=== PATIENT | female | born 1980 | race American Indian/Alaskan Native ===

== ENCOUNTER 2016-11-08 04:25 | Emergency (ER) | payer SELFPAY ==
[2016-11-08 05:54] LABS: Urine Drugs of Abuse Note Disclamer
[2016-11-08 05:55] LABS: Alanine Aminotransferase 10 units/L (7-56); Alkaline Phosphatase 68 units/L (35-129); Anion Gap 17 mmol/L; BUN/Creatinine Ratio 8.88; Blood Urea Nitrogen 8 mg/dL (7-17); Calcium 9.1 mg/dL (8.4-10.2); Carbon Dioxide 25 mmol/L (22-30); Chloride 101.5 mmol/L (98-107); Glucose 105 mg/dL (65-100); Lipase 34 units/L (13-60); Sodium 140 mmol/L (137-145); Total Protein 8.2 g/dL (6.3-8.2)
[2016-11-08 06:00] LABS: Creatine Kinase 189 units/L (30-135); Creatine Kinase MB 1.6 ng/mL (0.0-4.0)
[2016-11-08 06:06] LABS: Basophils % (Auto) 0.9 % (0.0-1.8); Eosinophils % (Auto) 0.1 % (0.0-4.3); Hematocrit 37.6 % (30.3-42.9); Hemoglobin 12.9 gm/dl (10.1-14.3); Mean Corpuscular HGB Conc 34 % (30-34); Mean Corpuscular Hemoglobin 34 pg (28-32); Mean Corpuscular Volume 98 fl (79-97); Mean Platelet Volume 8.8 fl (6-12); Platelet Count 268 K/mm3 (140-440); Red Blood Count 3.84 M/mm3 (3.65-5.03); Red Cell Distribution Width 13.9 % (13.2-15.2); White Blood Count 4.6 K/mm3 (4.5-11.0)
[2016-11-08 06:07] LABS: Partial Thromboplastin Time 30.4 Sec. (24.2-36.6)
[2016-11-08 06:08] LABS: INR 1.05 (0.87-1.13)
[2016-11-08 07:14] LABS: Bilirubin,Urine NEG (Negative); Blood,Urine MOD (Negative); Ketones,Urine NEG (Negative); Leukocyte Esterase,Urine TR (Negative); Mucus,Urine FEW /HPF; Nitrite,Urine NEG (Negative); Protein,Urine <15 mg/dL mg/dL (Negative); Urobilinogen,Urine < 2.0 mg/dL (<2.0)
[2016-11-08] MEDS ORDERED: K-DUR PO ONE (08:38)
--- NOTE | 2016-11-08 09:25 | Emergency Department Report ---
HPI - General Chief Complaint: Back Pain/Injury Time Seen by Provider: 11/08/16 08:37 - HPI HPI: This is a 36-year-old Afro-[place] female who presents to the emergency department by EMS from home with complaint of low back pain for the past 3 days where the patient has a "knot." She does have a history of some intermittent chronic Back pains but she has never developed a knot/lump like this. She denies any problems with bowel or bladder, numbness or paresthesias or any neurological deficits. She denies any vaginal discharge, dysuria, vaginal bleeding. She denies any trauma. She took ibuprofen 2 days ago for symptoms without much relief. She does not have a primary care doctor. No recent travel or sick contacts at home. Secondarily the patient complains of some elevated blood pressure. She does not have any diagnosed history of hypertension but says that she was told she had hypertension one time previous while at [facility]. Patient admits to drinking "a few beers" last night and also admitted to cocaine use at about 4 AM this morning, after the urine drug screen became positive. ED Past Medical Hx - Past Medical History Previous Medical History?: No - Surgical History Past Surgical History?: Yes Additional Surgical History: / D&C 2 - Social History Smoking Status: Current Every Day Smoker Substance Use Type: Alcohol, Cocaine, Marijuana - Medications Home Medications: Home Medications Medication Instructions Recorded Confirmed Last Taken Type amLODIPine [Norvasc] 5 mg PO QDAY #30 tablet 11/08/16 Unknown Rx ED Review of Systems ROS: Stated complaint: BACK PAIN Other details as noted in HPI Comment: All other systems reviewed and negative Constitutional: denies: chills, fever Eyes: denies: eye pain, eye discharge, vision change ENT: denies: ear pain, throat pain Respiratory: denies: cough, shortness of breath, wheezing Cardiovascular: denies: chest pain, palpitations Gastrointestinal: denies: abdominal pain, nausea, diarrhea Genitourinary: denies: urgency, dysuria, discharge Musculoskeletal: back pain. denies: arthralgia Skin: other (back "knot"). denies: rash Neurological: denies: headache, weakness, paresthesias Physical Exam - Physical Exam Vital Signs: Vital Signs 11/08/16 04:28 Temperature 99.2 F Pulse Rate 117 H Respiratory 18 Rate Blood Pressure 165/120 [Right] O2 Sat by Pulse 99 Oximetry Physical Exam: GENERAL: The patient is well-developed well-nourished. HEENT: Normocephalic. Atraumatic. Extraocular motions are intact. Patient has moist mucous membranes. Pupils equal reactive to light bilaterally. NECK: Supple. Trachea is midline. CHEST/LUNGS: Clear to auscultation. There is no respiratory distress noted. HEART/CARDIOVASCULAR: Regular. There is no tachycardia. There is no gallop rub or murmur. ABDOMEN: Abdomen is soft, nontender. Patient has normal bowel sounds. There is no abdominal distention. SKIN: There is a slightly indurated, tender but mobile area to the right paraspinal back at the thoracic lumbar junction that appears to be in the soft tissue or subcutaneous tissue that is about 3 cm in length. NEURO: The patient is awake, alert, and oriented. The patient is cooperative. The patient has no focal neurologic deficits. The patient has normal speech and gait. MUSCULOSKELETAL: There is no tenderness or deformity. There is no limitation range of motion. There is no evidence of acute injury. BACK: No midline thoracic or lumbar tenderness to palpation or deformity. There is a slightly indurated, tender but mobile area to the right paraspinal back at the thoracic lumbar junction that appears to be in the soft tissue or subcutaneous tissue that is about 3 cm in length. ED Course Vital Signs 11/08/16 04:28 Temperature 99.2 F Pulse Rate 117 H Respiratory 18 Rate Blood Pressure 165/120 [Right] O2 Sat by Pulse 99 Oximetry ED Medical Decision Making - Lab Data Result diagrams: 11/08/16 05:06 11/08/16 05:06 - EKG Data -: EKG Interpreted by Ny EKG shows normal: sinus rhythm, axis, intervals, QRS complexes, ST-T waves Rate: normal (101 bpm) - EKG Data When compared to previous EKG there are: previous EKG unavailable Interpretation: normal EKG - Radiology Data Radiology results: report reviewed Local soft tissue ultrasound of the back does not show any collection of fluid, mass or any acute process. - Medical Decision Making Is a 36-year-old female presents the emergency department with complaint of a small knot to the right lower portion of the back where she is having some discomfort as well as some problems with her blood pressure. Patient had multiple labs done through triage before she got to the main emergency department and his labs showed the patient have some alcohol intoxication with a blood alcohol level of 0.16, and a urine drug screen positive for cocaine. Both of these could be reasons for the patient's hypertension. On top of that, I later found out that the patient recently suffered a loss in the family and the stress could also be the reason for her hypertension. Rest the patient's labs are mostly unremarkable. There was an area to the right lower back paraspinal region in the subacute any tissue that was tender but mobile induration. An ultrasound was done that did not show any abscess, fluid collection, mass or any acute process. The patient was given some Toradol and upon reevaluation she says she is feeling better and the knot is starting to decrease. Patient was in the emergency department for multiple hours and therefore she is most likely had a blood alcohol level that is under the legal limit, but the patient's mother is also here to help get her home. The patient' s blood pressure has been labile going down to normal and then back up to elevated. She was given a dose of Norvasc here to help control blood pressure. She was given a prescription for Norvasc as well but she will keep a blood pressure log. If the patient no longer has alcohol intoxication, is removed from her cocaine use, and learns to deal with the family , and her blood pressure goes back to normal, then she may not need the blood pressure medication. If that is not the case, then she has the Norvasc to start and was given multiple referrals for primary care. She will return to the ER with any worsening of her symptoms or any acute distress. Critical Care Time: No Critical care attestation.: If time is entered above; I have spent that time in minutes in the direct care of this critically ill patient, excluding procedure time. ED Disposition Clinical Impression: Cocaine use Hypertension Qualifiers: Hypertension type: essential hypertension Qualified Code(s): I10 - Essential ( primary) hypertension Alcohol intoxication Qualifiers: Complication of substance-induced condition: uncomplicated Qualified Code(s): F10.920 - Alcohol use, unspecified with intoxication, uncomplicated Disposition: DISCHARGED TO HOME OR SELFCARE Is pt being admited?: No Condition: Stable Instructions: Hypertension (ED), Back Pain (ED) Additional Instructions: Please follow-up with a primary care doctor in the next few days. Try to stay away from any further alcohol use or illicit drug use. Also try to stay away from any foods are high in salt and caffeinated products to help with your blood pressure. I started you on a blood pressure medication called Norvasc to be taken once daily. Keep a blood pressure log. Return to the emergency department with any worsening of your symptoms or any acute distress. Prescriptions: amLODIPine [Norvasc] 5 mg PO QDAY #30 tablet Referrals: EARLENE SHARIF MD [Staff Physician] - 3-5 Days [facility] [Outside] - 3-5 Days Time of Disposition: 11:36
[2016-11-08] MEDS ORDERED: TORADOL IM ONE (09:39)
--- NOTE | 2016-11-08 10:22 | Ultrasound Report ---
ULTRASOUND UNLISTED PROCEDURE - BACK INDICATION: Right paraspinal soft tissue mass about the thoracolumbar junction. COMPARISON: None similar. FINDINGS: Longitudinal and transverse grayscale sonographic evaluation of area of concern along the back demonstrates no focal fluid collection or mass. CONCLUSION: No focal abnormality identified sonographically, as described. Please correlate. Thank you for the opportunity to participate in this patient's care.
[2016-11-08] MEDS ORDERED: NORVASC PO ONE (11:34)
[2016-11-08 11:48] VITALS: BP 160/118
== END 2016-11-08 11:49 | disposition home or self-care (01) ==
LOC: ED 04:25
DX: I10 Essential (primary) hypertension (principal); F10.920 Alcohol use, unspecified with intoxication, uncomplicated; F14.10 Cocaine abuse, uncomplicated; F17.200 Nicotine dependence, unspecified, uncomplicated; F12.10 Cannabis abuse, uncomplicated
CPT/HCPCS: 36415; 76999; 80053; 80307; 81001; 82550; 82553; 83690; 84484; 84703; 85025; 85610; 85730; 93005; 93010; 96372; 99285; G0480; J1885; 80320

== ENCOUNTER 2017-06-18 16:57 | Emergency (ER) | payer OTHER ==
[2017-06-18 17:13] VITALS: BP 136/93
[2017-06-18 17:44] LABS: Bilirubin,Urine NEG (Negative); Blood,Urine MOD (Negative); Ketones,Urine NEG (Negative); Leukocyte Esterase,Urine NEG (Negative); Nitrite,Urine NEG (Negative); Protein,Urine <15 mg/dL mg/dL (Negative); Urobilinogen,Urine < 2.0 mg/dL (<2.0); WBC,Urine < 1.0 /HPF (0.0-6.0)
[2017-06-18 18:01] LABS: Basophils % (Auto) 1.1 % (0.0-1.8); Eosinophils % (Auto) 0.1 % (0.0-4.3); Hematocrit 40.4 % (30.3-42.9); Hemoglobin 13.9 gm/dl (10.1-14.3); Mean Corpuscular HGB Conc 35 % (30-34); Mean Corpuscular Hemoglobin 34 pg (28-32); Mean Corpuscular Volume 99 fl (79-97); Platelet Count 296 K/mm3 (140-440); Red Blood Count 4.09 M/mm3 (3.65-5.03); Red Cell Distribution Width 13.9 % (13.2-15.2); White Blood Count 5.1 K/mm3 (4.5-11.0)
[2017-06-18 18:06] LABS: Anion Gap 20 mmol/L; BUN/Creatinine Ratio 7; Blood Urea Nitrogen 5 mg/dL (7-17); Calcium 9.3 mg/dL (8.4-10.2); Carbon Dioxide 23 mmol/L (22-30); Chloride 95.1 mmol/L (98-107); Glucose 113 mg/dL (65-100); Potassium 3.2 mmol/L (3.6-5.0); Sodium 135 mmol/L (137-145)
== END 2017-06-18 21:00 | disposition left against medical advice (07) ==
LOC: ED 16:57
DX: R19.7 Diarrhea, unspecified (principal); R11.11 Vomiting without nausea; M54.9 Dorsalgia, unspecified; Z53.21 Procedure and treatment not carried out due to patient leaving prior to being seen by health care provider
CPT/HCPCS: 36415; 80048; 81001; 84703; 85025; G0480; 80320

== ENCOUNTER 2017-07-13 22:12 | Emergency (ER) | payer SELFPAY ==
[2017-07-13 23:16] LABS: Bacteria,Urine 1+ /HPF (Negative); Bilirubin,Urine NEG (Negative); Blood,Urine LG (Negative); Color,Urine Yellow (Yellow); Mucus,Urine FEW /HPF; Nitrite,Urine NEG (Negative); Urobilinogen,Urine < 2.0 mg/dL (<2.0)
[2017-07-13 23:45] LABS: Basophils # (Auto) 0.1 K/mm3 (0.0-0.1); Basophils % (Auto) 0.7 % (0.0-1.8); Eosinophils % (Auto) 0.5 % (0.0-4.3); Hematocrit 32.2 % (30.3-42.9); Hemoglobin 10.9 gm/dl (10.1-14.3); Lymphocytes # (Auto) 1.4 K/mm3 (1.2-5.4); Lymphocytes % (Auto) 17.2 % (13.4-35.0); Mean Corpuscular HGB Conc 34 % (30-34); Mean Corpuscular Hemoglobin 33 pg (28-32); Mean Corpuscular Volume 97 fl (79-97); Monocytes % (Auto) 12.7 % (0.0-7.3); Platelet Count 360 K/mm3 (140-440); Red Blood Count 3.31 M/mm3 (3.65-5.03); Red Cell Distribution Width 13.8 % (13.2-15.2)
[2017-07-14 00:08] LABS: Alanine Aminotransferase 7 units/L (7-56); Albumin 3.4 g/dL (3.9-5); BUN/Creatinine Ratio 9; Blood Urea Nitrogen 9 mg/dL (7-17); Calcium 8.7 mg/dL (8.4-10.2); Hemolysis Index 3
[2017-07-14 08:12] VITALS: BP 146/73
== END 2017-07-14 11:15 | disposition left against medical advice (07) ==
LOC: ED 22:12
DX: R10.9 Unspecified abdominal pain (principal); N93.9 Abnormal uterine and vaginal bleeding, unspecified; Z53.21 Procedure and treatment not carried out due to patient leaving prior to being seen by health care provider
CPT/HCPCS: 36415; 80053; 81001; 84703; 85025

== ENCOUNTER 2021-03-29 05:47 | Emergency (ER) | payer SELFPAY ==
--- NOTE | 2021-03-29 06:16 | Event Note ---
ED Screening Note Date of service: 03/29/21 Time: 06:15 ED Screening Note: Patient 41-year-old -[place] female diagnosed with UTI 1 week ago states worsening symptoms x1 week. Symptoms include dysuria frequency and urgency patient denies hematuria however it is hard to void. There is nausea no vomiting and there is been no fever or chills. Last menstrual period 2 weeks ago. This initial assessment/diagnostic orders/clinical plan/treatment(s) is/are subject to change based on patients health status, clinical progression and re- assessment by fellow clinical providers in the ED. Further treatment and workup at subsequent clinical providers discretion. Patient/guardian urged not to elope from the ED as their condition may be serious if not clinically assessed and managed. Initial orders include: cbc, cmp, ua, hgc
[2021-03-29] MEDS ORDERED: KETOROLAC 60 MG/2 ML INJ IM ONE (07:21)
[2021-03-29] MEDS ORDERED: ONDANSETRON 4 MG ODT TAB PO ONE (07:21)
--- NOTE | 2021-03-29 07:34 | Emergency Department Report ---
ED Abdominal Pain HPI - General Chief Complaint: Abdominal Pain Stated Complaint: DISCHARGE Time Seen by Provider: 03/29/21 07:04 Source: patient Mode of arrival: Ambulatory Limitations: No Limitations - History of Present Illness Initial Comments: 41-year-old female the past medical history of hypertension presents to the hospital complaining of left flank pain x2 weeks worsening last night. Patient was seen [place] [facility] [place] 1 week ago due to dizziness with associated hypotension. Patient was placed on hydrochlorothiazide, another unknown BP medication, tramadol, and amoxicillin for UTI. Patient admits to urinary frequency at that time. Despite complete amoxicillin she continues to have urinary frequency, mild dysuria, and worsening left flank pain radiating to the left upper and lower abdomen. She complains of mild nausea and had one episode of vomiting after eating ice cream last night. She denies fevers. Patient is intermittently compliant with her BP medications because it makes her drowsy. She does not follow-up with a primary care doctor. Mild vaginal discharge reported. Patient is sexually active with 2 partners and does not use condoms - Related Data Previous Rx's Medication Instructions Recorded Last Taken Type amLODIPine 5 mg PO QDAY #30 tablet 11/08/16 Unknown Rx Ibuprofen [Motrin] 800 mg PO Q8HR PRN #20 tablet 03/29/21 Unknown Rx metroNIDAZOLE [Flagyl] 500 mg PO Q12HR #14 tab 03/29/21 Unknown Rx traMADoL [Ultram 50 MG tab] 50 mg PO Q6HR PRN #10 tablet 03/29/21 Unknown Rx Allergies Allergy/AdvReac Type Severity Reaction Status Date / Time No Known Allergies Allergy Verified 07/13/17 22:23 ED Review of Systems ROS: Stated complaint: DISCHARGE Other details as noted in HPI Comment: All other systems reviewed and negative ED Past Medical Hx - Past Medical History Previous Medical History?: Yes Hx Hypertension: Yes Additional medical history: ?abdominal cyst - Surgical History Past Surgical History?: Yes Additional Surgical History: / D&C 2 - Social History Smoking Status: Current Every Day Smoker Substance Use Type: Alcohol - Medications Home Medications: Home Medications Medication Instructions Recorded Confirmed Last Taken Type amLODIPine 5 mg PO QDAY #30 tablet 11/08/16 Unknown Rx Ibuprofen [Motrin] 800 mg PO Q8HR PRN #20 tablet 03/29/21 Unknown Rx metroNIDAZOLE [Flagyl] 500 mg PO Q12HR #14 tab 03/29/21 Unknown Rx traMADoL [Ultram 50 MG tab] 50 mg PO Q6HR PRN #10 tablet 03/29/21 Unknown Rx ED Physical Exam - General Limitations: No Limitations - Other Other exam information: General: No acute distress Head: Atraumatic Eyes: normal appearance ENT: Moist mucous membranes Neck: Normal appearance, no midline tenderness Chest: Clear to auscultation bilaterally CV: Regular rate and rhythm Abdomen: Soft, normal bowel sounds, left sided abdominal tenderness, nondistended, no rebound or guarding Pelvic: Minimal discharge. No odor. No CMT tenderness. No cervical lesions no CMT tenderness Back: Normal inspection, left flank tenderness Extremity: Normal inspection, full range of motion Neuro: Alert O x 3, no facial asymmetry, speech clear, no gross motor sensory deficit Psych: Appropriate behavior Skin: No rash ED Course Vital Signs 03/29/21 03/29/21 03/29/21 05:50 07:43 10:57 Temperature 98.6 F 98.4 F Pulse Rate 90 70 72 Respiratory 18 14 Rate Blood Pressure 189/125 160/104 Blood Pressure 151/108 [Right] O2 Sat by Pulse 95 100 Oximetry 03/29/21 03/29/21 10:58 11:04 Temperature 98.1 F Pulse Rate 72 Respiratory 14 Rate Blood Pressure 151/108 Blood Pressure [Right] O2 Sat by Pulse 100 100 Oximetry ED Medical Decision Making - Lab Data Result diagrams: 03/29/21 06:50 03/29/21 06:50 Lab Results 03/29/21 03/29/21 03/29/21 Range/Units 06:50 06:50 06:50 WBC 4.5 (4.5-11.0) K/mm3 RBC 3.76 (3.65-5.03) M/mm3 Hgb 12.8 (10.1-14.3) gm/dl Hct 36.5 (30.3-42.9) % MCV 97 (79-97) fl MCH 34 H (28-32) pg MCHC 35 H (30-34) % RDW 12.9 L (13.2-15.2) % Plt Count 241 (140-440) K/mm3 Lymph % (Auto) 31.6 (13.4-35.0) % Rogers % (Auto) 9.3 H (0.0-7.3) % Eos % (Auto) 1.6 (0.0-4.3) % Baso % (Auto) 1.2 (0.0-1.8) % Lymph # (Auto) 1.4 (1.2-5.4) K/mm3 Rogers # (Auto) 0.4 (0.0-0.8) K/mm3 Eos # (Auto) 0.1 (0.0-0.4) K/mm3 Baso # (Auto) 0.1 (0.0-0.1) K/mm3 Seg Neutrophils % 56.3 (40.0-70.0) % Seg Neutrophils # 2.5 (1.8-7.7) K/mm3 Sodium 137 (137-145) mmol/L Potassium 4.1 (3.6-5.0) mmol/L Chloride 103.2 (98-107) mmol/L Carbon Dioxide 23 (22-30) mmol/L Anion Gap 15 mmol/L BUN 9 (7-17) mg/dL Creatinine 0.7 (0.6-1.2) mg/dL Estimated GFR > 60 ml/min BUN/Creatinine Ratio 13 % Glucose 94 (65-100) mg/dL Calcium 9.1 (8.4-10.2) mg/dL Total Bilirubin 0.20 (0.1-1.2) mg/dL AST 23 (5-40) units/L ALT 23 (7-56) units/L Alkaline Phosphatase 79 (35-129) units/L Total Protein 7.6 (6.3-8.2) g/dL Albumin 4.1 (3.9-5) g/dL Albumin/Globulin Ratio 1.2 % HCG, Qual (Negative) Urine Color Straw (Yellow) Urine Turbidity Clear (Clear) Urine pH 6.0 (5.0-7.0) Ur Specific [place] 1.008 (1.003-1.030) Urine Protein <15 mg/dl (Negative) mg/dL Urine Glucose (UA) Neg (Negative) mg/dL Urine Ketones Neg (Negative) mg/dL Urine Blood Sm (Negative) Urine Nitrite Neg (Negative) Urine Bilirubin Neg (Negative) Urine Urobilinogen < 2.0 (<2.0) mg/dL Ur Leukocyte Esterase Neg (Negative) Urine WBC (Auto) 2.0 (0.0-6.0) /HPF Urine RBC (Auto) 1.0 (0.0-6.0) /HPF U Epithel Cells (Auto) 2.0 (0-13.0) /HPF Urine Mucus Few /HPF Urine HCG, Qual Negative (Negative) 03/29/21 Range/Units 07:14 WBC (4.5-11.0) K/mm3 RBC (3.65-5.03) M/mm3 Hgb (10.1-14.3) gm/dl Hct (30.3-42.9) % MCV (79-97) fl MCH (28-32) pg MCHC (30-34) % RDW (13.2-15.2) % Plt Count (140-440) K/mm3 Lymph % (Auto) (13.4-35.0) % Rogers % (Auto) (0.0-7.3) % Eos % (Auto) (0.0-4.3) % Baso % (Auto) (0.0-1.8) % Lymph # (Auto) (1.2-5.4) K/mm3 Rogers # (Auto) (0.0-0.8) K/mm3 Eos # (Auto) (0.0-0.4) K/mm3 Baso # (Auto) (0.0-0.1) K/mm3 Seg Neutrophils % (40.0-70.0) % Seg Neutrophils # (1.8-7.7) K/mm3 Sodium (137-145) mmol/L Potassium (3.6-5.0) mmol/L Chloride (98-107) mmol/L Carbon Dioxide (22-30) mmol/L Anion Gap mmol/L BUN (7-17) mg/dL Creatinine (0.6-1.2) mg/dL Estimated GFR ml/min BUN/Creatinine Ratio % Glucose (65-100) mg/dL Calcium (8.4-10.2) mg/dL Total Bilirubin (0.1-1.2) mg/dL AST (5-40) units/L ALT (7-56) units/L Alkaline Phosphatase (35-129) units/L Total Protein (6.3-8.2) g/dL Albumin (3.9-5) g/dL Albumin/Globulin Ratio % HCG, Qual Negative (Negative) Urine Color (Yellow) Urine Turbidity (Clear) Urine pH (5.0-7.0) Ur Specific [place] (1.003-1.030) Urine Protein (Negative) mg/dL Urine Glucose (UA) (Negative) mg/dL Urine Ketones (Negative) mg/dL Urine Blood (Negative) Urine Nitrite (Negative) Urine Bilirubin (Negative) Urine Urobilinogen (<2.0) mg/dL Ur Leukocyte Esterase (Negative) Urine WBC (Auto) (0.0-6.0) /HPF Urine RBC (Auto) (0.0-6.0) /HPF U Epithel Cells (Auto) (0-13.0) /HPF Urine Mucus /HPF Urine HCG, Qual (Negative) Wet prep reviewed Gonorrhea chlamydia pending - Radiology Data Radiology results: report reviewed CT abdomen pelvis w con INDICATION: left flank pain. left abd pain. COMPARISON: None TECHNIQUE: Abdominal and pelvic CT exam performed. All CT scans at this location are performed using CT dose reduction for ALARA by means of automated exposure control. FINDINGS: CT ABDOMEN and PELVIS: Lung Bases: No significant abnormality. Liver: No significant abnormality. Biliary: No significant abnormality. Spleen: No significant abnormality. Pancreas: No significant abnormality. Adrenals: No significant abnormality. Kidneys: No significant abnormality. Lymphatics: No lymphadenopathy. Vasculature: No significant abnormality. Bowel: No significant abnormality. Normal appendix. Pelvis: Heterogeneous uterus with multiple underlying fibroids. The largest is in the lower posterior uterine body measuring up to approximately 7 cm. Small peripherally enhancing left corpus luteal cyst. Osseous Structures: No aggressive osseous lesion. Additional Findings: None IMPRESSION: 1. There is a small left corpus luteal cyst which can be a pain generator. Correlate clinically. Multiple uterine lesions most consistent with fibroids measuring up to 7 cm. 2. Otherwise, no significant abnormality. - Medical Decision Making 41-year-old female complaining of left flank and left lower abdominal pain recently treated for UTI. Today there are no signs of infection. CT abdomen and pelvis revealed fibroids and corpus luteum cyst. Pelvic exam revealed increased clue cells. Chlamydia and gonorrhea pending however, no signs of PID on exam. Patient received Toradol in the ED with improvement in pain. Patient be discharged on pain medication and Flagyl for bacterial vaginosis. Outpatient follow-up with [employer] advised Patient also presented with elevated blood pressure (asymptomatic without signs and symptoms of hypertensive emergency) and admitted to intermittent compliance to medications. Informed her the importance of compliance and need for follow- up for possible medication adjustment by her physician. Patient received labetalol here in the ED with improvement in her blood pressure Copy of CT report provided for outpatient follow Critical Care Time: No Critical care attestation.: If time is entered above; I have spent that time in minutes in the direct care of this critically ill patient, excluding procedure time. ED Disposition Clinical Impression: Left flank pain, Fibroids, Corpus luteum cyst of left ovary, Bacterial vaginosis, Uncontrolled hypertension, Noncompliance with medication regimen Disposition: HOME / SELF CARE / HOMELESS Is pt being admited?: No Does the pt Need Aspirin: No Condition: Stable Instructions: Abdominal Pain (ED), Bacterial Vaginosis (ED), Uterine Fibroids, [id number], Bacterial Vaginosis, [id number], Ovarian Cyst, Hypertension (ED), Managing Your Hypertension Additional Instructions: Take the medication as prescribed. Follow-up with your doctor or doctor/clinic provided. Return if symptoms worsen as indicated by your discharge instructions. Your gonorrhea and Chlamydia tests have been sent and take 2-3 days to result. You may obtain your results by going to medical records with your photo ID or your follow-up physician may request the results be sent to his or her office wi th your written permission. Prescriptions: metroNIDAZOLE [Flagyl] 500 mg PO Q12HR #14 tab Ibuprofen [Motrin] 800 mg PO Q8HR PRN #20 tablet PRN Reason: Pain , Severe (7-10) traMADoL [Ultram 50 MG tab] 50 mg PO Q6HR PRN #10 tablet PRN Reason: Pain Referrals: PRIMARY CAREMD [Primary Care Provider] - 3-5 Days ANTONIO YEBOAH MD [Staff Physician] - 7-10 days ([employer] doctor) Forms: STI Treatment and Prevention Time of Disposition: 11:13
[2021-03-29 07:39] LABS: Basophils # (Auto) 0.1 K/mm3 (0.0-0.1); Basophils % (Auto) 1.2 % (0.0-1.8); Eosinophils # (Auto) 0.1 K/mm3 (0.0-0.4); Eosinophils % (Auto) 1.6 % (0.0-4.3); Hematocrit 36.5 % (30.3-42.9); Hemoglobin 12.8 gm/dl (10.1-14.3); Lymphocytes # (Auto) 1.4 K/mm3 (1.2-5.4); Lymphocytes % (Auto) 31.6 % (13.4-35.0); Mean Corpuscular HGB Conc 35 % (30-34); Mean Corpuscular Volume 97 fl (79-97); Monocytes # (Auto) 0.4 K/mm3 (0.0-0.8); Monocytes % (Auto) 9.3 % (0.0-7.3); Platelet Count 241 K/mm3 (140-440); Red Blood Count 3.76 M/mm3 (3.65-5.03); Red Cell Distribution Width 12.9 % (13.2-15.2)
[2021-03-29 07:49] LABS: Bilirubin,Urine NEG (Negative); Blood,Urine SM (Negative); Color,Urine Straw (Yellow); Mucus,Urine FEW /HPF; Protein,Urine <15 mg/dL mg/dL (Negative); Urobilinogen,Urine < 2.0 mg/dL (<2.0)
[2021-03-29 07:50] LABS: HCG Qualitative,Urine Negative (Negative)
[2021-03-29 07:59] LABS: Alanine Aminotransferase 23 units/L (7-56); Albumin 4.1 g/dL (3.9-5); Blood Urea Nitrogen 9 mg/dL (7-17); Calcium 9.1 mg/dL (8.4-10.2); Hemolysis Index 29
[2021-03-29 08:14] LABS: BUN/Creatinine Ratio 13
--- NOTE | 2021-03-29 09:10 | Cat Scan Report ---
CT abdomen pelvis w con INDICATION: left flank pain. left abd pain. COMPARISON: None TECHNIQUE: Abdominal and pelvic CT exam performed. All CT scans at this location are performed using CT dose reduction for ALARA by means of automated exposure control. FINDINGS: CT ABDOMEN and PELVIS: Lung Bases: No significant abnormality. Liver: No significant abnormality. Biliary: No significant abnormality. Spleen: No significant abnormality. Pancreas: No significant abnormality. Adrenals: No significant abnormality. Kidneys: No significant abnormality. Lymphatics: No lymphadenopathy. Vasculature: No significant abnormality. Bowel: No significant abnormality. Normal appendix. Pelvis: Heterogeneous uterus with multiple underlying fibroids. The largest is in the lower posterior uterine body measuring up to approximately 7 cm. Small peripherally enhancing left corpus luteal cys t. Osseous Structures: No aggressive osseous lesion. Additional Findings: None IMPRESSION: 1. There is a small left corpus luteal cyst which can be a pain generator. Correlate clinically. Mult iple uterine lesions most consistent with fibroids measuring up to 7 cm. 2. Otherwise, no significant abnormality. Signer Name: Ari Pat MD Signed: 03/29/2021 9:05 AM Workstation Name: [id number]
[2021-03-29 10:58] VITALS: BP 151/108
== END 2021-03-29 11:27 | disposition home or self-care (01) ==
LOC: ED 05:47
DX: N83.12 Corpus luteum cyst of left ovary (principal); N76.0 Acute vaginitis; B96.89 Other specified bacterial agents as the cause of diseases classified elsewhere; D21.9 Benign neoplasm of connective and other soft tissue, unspecified; I10 Essential (primary) hypertension; F17.200 Nicotine dependence, unspecified, uncomplicated; Z72.89 Other problems related to lifestyle; Z79.899 Other long term (current) drug therapy
CPT/HCPCS: 36415; 74177; 80053; 81001; 81025; 84703; 85025; 87210; 87591; 96372; 99284; J1885; Q9967; Q0162

== ENCOUNTER 2022-01-30 10:19 | Emergency (ER) | payer OTHER ==
--- NOTE | 2022-01-30 19:37 | Emergency Department Report ---
ED General Adult HPI - General Chief complaint: High BP Stated complaint: HYPERTENSION Time Seen by Provider: 01/30/22 19:20 Source: patient, EMS Mode of arrival: Stretcher Limitations: No Limitations - History of Present Illness Initial comments: 41-year-old female past medical history hypertension reports to the ER for medication refill for her blood pressure medication. Patient reports she has been off her blood pressure medication for 3 months. Patient however is unable to state the name of her current blood pressure medication. Patient reports no headache, no chest pain, no dizziness, no weakness. Patient is asymptomatic for elevated blood pressure. Patient also during initial assessment patient reports that she feels that she has a yeast infection patient reports yellow vaginal discharge. Patient reports she was sexually active 3 weeks ago and the vaginal discharge started 1 week after. Patient reports no other acute symptoms. Denies vaginal bleeding, vaginal discharge comfort, no abdominal pain reported. - Related Data Previous Rx's Medication Instructions Recorded Last Taken Type amLODIPine 5 mg PO QDAY #30 tablet 11/08/16 Unknown Rx Ibuprofen [Motrin] 800 mg PO Q8HR PRN #20 tablet 03/29/21 Unknown Rx metroNIDAZOLE [Flagyl] 500 mg PO Q12HR #14 tab 03/29/21 Unknown Rx traMADoL [Ultram 50 MG tab] 50 mg PO Q6HR PRN #10 tablet 03/29/21 Unknown Rx Amoxicillin [Trimox CAP] 500 mg PO BID 10 Days #20 capsule 01/30/22 Unknown Rx Doxycycline Hyclate 100 mg PO BID 7 Days #14 cap 01/30/22 Unknown Rx amLODIPine 5 mg PO DAILY 30 Days #30 tab 01/30/22 Unknown Rx Allergies Allergy/AdvReac Type Severity Reaction Status Date / Time No Known Allergies Allergy Verified 01/30/22 10:31 ED Review of Systems ROS: Stated complaint: HYPERTENSION Other details as noted in HPI Comment: All other systems reviewed and negative Genitourinary: discharge ED Past Medical Hx - Past Medical History Previous Medical History?: Yes Hx Hypertension: Yes Additional medical history: ?abdominal cyst - Surgical History Additional Surgical History: / D&C 2 - Social History Smoking Status: Current Every Day Smoker Substance Use Type: Alcohol - Medications Home Medications: Home Medications Medication Instructions Recorded Confirmed Last Taken Type amLODIPine 5 mg PO QDAY #30 tablet 17 03/29/21 Unknown Rx Ibuprofen [Motrin] 800 mg PO Q8HR PRN #20 tablet 03/29/21 Unknown Rx metroNIDAZOLE [Flagyl] 500 mg PO Q12HR #14 tab 03/29/21 Unknown Rx traMADoL [Ultram 50 MG tab] 50 mg PO Q6HR PRN #10 tablet 03/29/21 Unknown Rx Amoxicillin [Trimox CAP] 500 mg PO BID 10 Days #20 capsule 01/30/22 Unknown Rx Doxycycline Hyclate 100 mg PO BID 7 Days #14 cap 01/30/22 Unknown Rx amLODIPine 5 mg PO DAILY 30 Days #30 tab 01/30/22 Unknown Rx ED Physical Exam - General Limitations: No Limitations General appearance: alert, in no apparent distress - Head Head exam: Present: atraumatic, normocephalic - Eye Eye exam: Present: normal appearance - ENT ENT exam: Present: mucous membranes moist - Neck Neck exam: Present: normal inspection - Respiratory Respiratory exam: Present: normal lung sounds bilaterally. Absent: respiratory distress - Cardiovascular Cardiovascular Exam: Present: regular rate, normal rhythm. Absent: systolic m urmur, diastolic murmur, rubs, gallop - GI/Abdominal GI/Abdominal exam: Present: soft, normal bowel sounds - Rectal Rectal exam: Present: other (Patient deferred vaginal exam patient to self swab for wet prep and GC.) - Extremities Exam Extremities exam: Present: normal inspection - Back Exam Back exam: Present: normal inspection - Neurological Exam Neurological exam: Present: alert, oriented X3 - Psychiatric Psychiatric exam: Present: normal affect, normal mood - Skin Skin exam: Present: warm, dry, intact, normal color. Absent: rash ED Course Vital Signs 01/30/22 10:30 Temperature 97.8 F Pulse Rate 86 Respiratory 16 Rate Blood Pressure 184/110 [Left] O2 Sat by Pulse 99 Oximetry ED Medical Decision Making - Lab Data Result diagrams: 01/30/22 19:32 - Medical Decision Making 41-year-old female reports to the ER with complaints of blood pressure medicati on refilled. As well as vaginal discharge for 2 weeks and dental pain for 1 week. Patient deferred vaginal exam. Patient self swab Patient has dental tenderness to the right lower molar with slight swelling to the right jawline. Lungs are clear to auscultation. Normal heart rate. No chest pain or shortness of breath. Asymptomatic elevated blood pressure. Wet prep negative for yeast, BV, trichomoniasis Gonorrhea chlamydia swab collected pending results patient prophylactically treated with 500 mg Rocephin and 1 g azithromycin (1 g azithromycin given to patient in case she does not complete her doxycycline treatment). Patient stable for discharge home patient agrees with plan of care verbalized understanding. Vital Signs 01/30/22 10:30 Temperature 97.8 F Pulse Rate 86 Respiratory 16 Rate Blood Pressure 184/110 [Left] O2 Sat by Pulse 99 Oximetry Lab Results 01/30/22 Range/Units 19:32 Sodium 138 (137-145) mmol/L Potassium 3.6 (3.6-5.0) mmol/L Chloride 101.4 (98-107) mmol/L Carbon Dioxide 28 (22-30) mmol/L Anion Gap 12 mmol/L BUN 10 (7-17) mg/dL Creatinine 0.8 (0.6-1.2) mg/dL Estimated GFR > 60 ml/min BUN/Creatinine Ratio 13 % Glucose 90 (65-100) mg/dL Calcium 9.2 (8.4-10.2) mg/dL Microbiology 01/30/22 20:20 Vaginal Wet Prep - Final Critical care attestation.: If time is entered above; I have spent that time in minutes in the direct care of this critically ill patient, excluding procedure time. ED Disposition Clinical Impression: Vaginal discharge, Dental infection HTN (hypertension) Qualifiers: Hypertension type: primary hypertension Qualified Code(s): I10 - Essential (primary) hypertension Disposition: 01 HOME / SELF CARE / HOMELESS Is pt being admited?: No Condition: Stable Instructions: Gonorrhea Test, Vaginitis, [id number], Chlamydia Test, Hypertension, Adult, Hypertension (ED) Prescriptions: amLODIPine 5 mg PO DAILY 30 Days #30 tab Doxycycline Hyclate 100 mg PO BID 7 Days #14 cap Amoxicillin [Trimox CAP] 500 mg PO BID 10 Days #20 capsule Time of Disposition: 21:14
[2022-01-30 20:28] LABS: BUN/Creatinine Ratio 13; Blood Urea Nitrogen 10 mg/dL (7-17); Calcium 9.2 mg/dL (8.4-10.2); Hemolysis Index 5
[2022-01-30] MEDS ORDERED: AZITHROMYCIN 250 MG TAB PO ONE (20:59)
[2022-01-30] MEDS ORDERED: LIDOCAINE-MPF (1%) 10 MG/1 ML VIAL 5 ML INFILTRATI ONE (20:59)
[2022-01-30] MEDS ORDERED: amLODIPine 5 MG TAB PO ONE (21:36)
[2022-01-30 21:48] VITALS: BP 190/120
== END 2022-01-30 21:52 | disposition home or self-care (01) ==
LOC: ED 10:19
DX: I10 Essential (primary) hypertension (principal); N89.8 Other specified noninflammatory disorders of vagina; K04.7 Periapical abscess without sinus; F17.200 Nicotine dependence, unspecified, uncomplicated; F10.20 Alcohol dependence, uncomplicated
CPT/HCPCS: 36415; 80048; 87210; 87591; 96372; 99284; J0696; J3490